=== PATIENT | female | born 1940 | race Caucasian/White ===

== ENCOUNTER 2018-11-11 05:34 | Emergency (ER) | payer MEDICARE ==
[~2018-11-11] VITALS: Ht 160 cm; Wt 63.5 kg
[~2018-11-11 05:34] MED LIST: ASPI-630 PO; DULO40CA2 PO; OMEP40CA5 PO; POLY17PO29 PO; VIT1TABL32 PO
[2018-11-11 05:44] VITALS: BP 143/66
[2018-11-11] MEDS ORDERED: KETOROLAC 15 MG/ML VIAL. IM ONE (06:15)
--- NOTE | 2018-11-11 06:17 | PHYS DOC ---
Past Medical History Past Medical History: High Cholesterol, Other Additional Past Medical Histor: Macular Degeneration (AXEL RAMSAY DO) Past Surgical History: Tonsillectomy, Other Additional Past Surgical Histo: Duodenal Ulcer (AXEL RAMSAY DO) Alcohol Use: None Drug Use: None (AXEL RAMSAY DO) Adult General Chief Complaint Chief Complaint: LOWER BACK PAIN OR INJURY HPI HPI 78-year-old female presents with report of sudden mid lumbar pain which started this morning. Denies known trauma. Denies fevers/chills. Patient does report some recent constipation. Denies dysuria or hematuria however has had some increased frequency. Denies known trauma. Denies rash. Denies history of back pain. (AXEL RAMSAY DO) Review of Systems Review of Systems Constitutional: Denies fever or chills [] Eyes: Denies change in visual acuity, redness, or eye pain [] HENT: Denies nasal congestion or sore throat [] Respiratory: Denies cough or shortness of breath [] Cardiovascular: Denies chest pain or palpitations GI: Denies abdominal pain, nausea, vomiting, or diarrhea; reports constipation : Denies dysuria or hematuria; reports increased frequency] Musculoskeletal: Reports back pain; denies joint pain [] Integument: Denies rash or skin lesions [] Neurologic: Denies headache, focal weakness or sensory changes [] Complete systems were reviewed and found to be within normal limits, except as documented in this note. (AXEL RAMSAY DO) Current Medications Current Medications Current Medications Medications (Trade) Dose Ordered Sig/Juliana Start Time Stop Time Status Last Admin Dose Admin Ketorolac Tromethamine (Toradol 15mg Vial) 10 mg 1X ONCE 11/11/18 06:15 11/11/18 06:16 DC 11/11/18 06:15 10 MG (FABIANA ALICEA MD) Allergies Allergies Allergies Coded Allergies Type Severity Reaction Last Updated Verified No Known Drug Allergies 05/04/16 No (FABIANA ALICEA MD) Physical Exam Physical Exam Constitutional: Well developed, well nourished, no acute distress, non-toxic appearance. [] HENT: Normocephalic, atraumatic, poor dentition Eyes: Conjunctiva normal, no discharge. [] Neck: Normal range of motion, no tenderness, supple Cardiovascular: Heart rate regular rhythm, no murmur [] Lungs & Thorax: Bilateral breath sounds clear to auscultation [] Abdomen: Soft, no tenderness Skin: Warm, dry, no erythema, no rash. [] Back: Midline lumbar tenderness on palpation, no CVA tenderness. [] Extremities: No tenderness, ROM intact, no edema. [] Neurologic: Alert and oriented X 3, normal motor function, normal sensory function, no focal deficits noted. [] Psychologic: Affect anxious, judgement normal, (AXEL RAMSAY DO) Current Patient Data Vital Signs Vital Signs Date Time Temp Pulse Resp B/P (MAP) Pulse Ox O2 Delivery O2 Flow Rate FiO2 11/11/18 05:44 98.1 79 18 143/66 (91) 95 Room Air 98.1 (FABIANA ALICEA MD) Lab Values Laboratory Tests Test 11/11/18 07:00 Urine Collection Type Unknown Urine Color [place] Urine Clarity Clear Urine pH 5.5 Urine Specific [place] >=1.030 Urine Protein Negative mg/dL (NEG-TRACE) Urine Glucose (UA) Negative mg/dL (NEG) Urine Ketones (Stick) Negative mg/dL (NEG) Urine Blood Small (NEG) Urine Nitrite Negative (NEG) Urine Bilirubin Small (NEG) Urine Urobilinogen Dipstick 1.0 mg/dL (0.2 mg/dL) Urine Leukocyte Esterase Small (NEG) Urine RBC 3-5 /HPF (0-2) Urine WBC 5-10 /HPF (0-4) Urine Squamous Epithelial Cells Few /LPF Urine Bacteria Moderate /HPF (0-FEW) Urine Mucus Marked /LPF (FABIANA ALICEA MD) EKG EKG [] (AXEL RAMSAY DO) Radiology/Procedures Radiology/Procedures [] (AXEL RAMSAY DO) Radiology/Procedures ER physician preliminary lumbar spine x-ray interpretation: Degenerative disc disease, without acute pathologic process or acute fracture noted. ER physician preliminary acute abdominal series: Stool within the large intestine, without any evidence of bowel obstruction (FABIANA ALICEA MD) Course & Med Decision Making Course & Med Decision Making Patient presents with sudden mid lumbar pain with concern for possible constipation versus urinary tract infection per patient. Tenderness noted on palpation of midline lumbar spine. Abdomen non-peritoneal. No flank pain appreciated. No rash appreciated. Denies known trauma. UA pending. X-ray of abdomen for constipation and lumbar spine pending. Sign out given to Dr. Alicea for further evaluation and final disposition. Discussed current findings and plan with patient and family, who acknowledge understanding and agreement. (AXEL RAMSAY DO) Course & Med Decision Making Patient care was assumed from Dr. Ramsay at shift change. Patient complained of some lumbar spine for the past few days. She denies any injury. She has not had any numbness, weakness, or incontinence. She does report a history of osteoporosis. She also reports having had chronic problems with constipation, which seems to have worsened over the past few months, she has not had a bowel movement in several days. She has not had any abdominal pain, nausea, or vomiting. The patient has been reexamined. Her abdomen is soft and nontender, there are no palpable masses, or abdominal bruits. There is no clinical evidence to suggest abdominal aortic aneurysm other acute pathology. Patient does have some mild tenderness to palpation reproducible in the posterior lumbar spine, without any step-off. X-rays have been reviewed. Urinalysis does show a possible early urinary tract infection. Discussed importance of close follow-up patient's PCP, with whom she says she has an appointment scheduled upcoming, and we discussed return precautions. (FABIANA ALICEA MD) Dragon Disclaimer Dragon Disclaimer This electronic medical record was generated, in whole or in part, using a voice recognition dictation system. (AXEL RAMSAY DO) Departure Departure Impression: Primary Impression: Low back pain Additional Impression: Urinary tract infection Disposition: HOME, SELF-CARE Condition: STABLE Referrals: EDDIE LARSON MD (PCP) Patient Instructions: Back Pain, Adult, Constipation, Adult, Urinary Tract Infection Additional Instructions: Tylenol 650 mg every 6 hours may help improve your back pain. Using an over-the- counter laxative, such as MiraLAX, once or twice daily may help improve constipation. Follow-up with your primary care provider as soon as possible. Scripts Sulfamethoxazole/Trimethoprim (BACTRIM DS TABLET) 1 Each Tablet 1 TAB PO BID for 5 Days, #10 TAB Prov: FABIANA ALICEA MD 11/11/18 Problem Qualifiers Primary Impression: Low back pain Chronicity: acute Back pain laterality: bilateral Sciatica presence: without sciatica Qualified Codes: M54.5 - Low back pain AXEL RAMSAY DO Nov 11, 2018 06:17 FABIANA ALICEA MD Nov 11, 2018 08:24
[2018-11-11 07:18] LABS: BILIRUBIN,URINE SMALL (NEG); CLARITY,URINE CLEAR; COLOR,URINE AMBER; NITRITE,URINE NEGATIVE (NEG); PH,URINE 5.5; PROTEIN,URINE NEGATIVE (NEG-TRACE)
[2018-11-11 07:28] LABS: SQUAMOUS EPITHELIAL CELL,UR FEW /LPF
[2018-11-11 07:29] LABS: BACTERIA,URINE MODERATE /HPF (0-FEW)
[2018-11-11] MEDS ORDERED: SULF1TAB24 PO (08:23)
--- NOTE | 2018-11-11 08:24 | RAD ---
Indication: Pain with no known injury TECHNIQUE: Multiple views of the lumbar spine and multiple views of the abdomen COMPARISON: None FINDINGS: Lumbar spine: There are 5 lumbar type vertebral bodies. No compression deformities. Minimal anterolisthesis of L4 over L5. Multilevel intervertebral disc space narrowing, worse at L2-L3. Mild bilateral SI joint osteoarthritis. Multilevel facet arthropathy. ABDOMEN: Heart is normal in size. Visualized lung bases are clear. No abnormally dilated bowel loops or air-fluid levels. No abnormal calcifications projecting over the kidneys to suggest apparent renal stones. Minimal levoscoliosis of the lumbar spine with apex at L2 vertebral body. Heart is normal in size. 1.1 cm radiopacity is seen in the left midlung zone. Otherwise, lungs are clear. IMPRESSION: 1. Multilevel degenerative disc disease, worse at L2-L3. Mild multilevel facet arthropathy. 2. Small radiopacity in the left midlung zone may represent a pulmonary nodule or calcified adenoma. Nonemergent CT of chest without IV contrast is recommended. Electronically signed by: Maicol Lambert DO (11/11/2018 8:20 AM) [id number]
== END 2018-11-11 08:22 | disposition home or self-care (01) ==
LOC: ER 05:34
DX: N39.0 Urinary tract infection, site not specified (principal); M51.36 Other intervertebral disc degeneration, lumbar region; E78.00 Pure hypercholesterolemia, unspecified; Z90.89 Acquired absence of other organs; K59.00 Constipation, unspecified
CPT/HCPCS: 72100; 74022; 81001; 96372; 99284; J1885

== ENCOUNTER → 2020-05-30 | Outpatient (CLI) | payer MEDICARE ==
[2018-11-19 07:00] VITALS: BP 126/67
[~2020-05-30] MED LIST changes: +HYDR-2759 PO; +OMEP40CA45 PO; -OMEP40CA5 PO; +SULF1TAB24 PO
--- NOTE | 2020-05-30 13:55 | KCIC ---
INDICATION: Osteoporosis screening. Postmenopausal evaluation COMPARISON: None. TECHNIQUE: Bone densitometry was performed through the distal radius. FINDINGS: Distal radius: BMD: 0.41 T-Score: -3 IMPRESSION: 1. Distal radius is within the osteoporotic range. Electronically signed by: David Saini MD (05/30/2020 1:52 PM) [id number]
--- NOTE | 2020-05-30 13:57 | KCIC ---
INDICATION: Osteoporosis screening. Postmenopausal screening COMPARISON: 04/08/2014 TECHNIQUE: Bone densitometry was performed through the left hip. FINDINGS: Proximal Femur: BMD: 0.68 T-Score: -2.1 Decreased by 6 percent from prior IMPRESSION: Proximal femur falls within the osteopenic range. Electronically signed by: David Saini MD (05/30/2020 1:54 PM) [id number]
--- NOTE | 2020-05-30 17:13 | KCIC ---
EXAM: CHEST PA LATERAL INDICATION: Reason: LUNG MASS ON PRIOR CXR / Spl. Instructions: / History: . TECHNIQUE: PA and lateral views COMPARISON: 11/11/2018 chest x-ray FINDINGS: The heart size is normal. The great vessels appear unremarkable. There is no hilar or mediastinal mass. Surgical clips at the hiatus are present.. Lungs show a 10 mm calcific density in the anterior left upper lobe. Otherwise they are clear. This is not significantly changed radiographically in the interval. There is no pleural effusion or pneumothorax. Vertebroplasty cement is present in the upper lumbar spine, new in the interval. IMPRESSION: Similar-appearing 10 mm dense nodule in the left upper lobe, better characterized on chest CT when clinically feasible. No other acute superimposed findings in the interval. Electronically signed by: Krissy Beckham MD (05/30/2020 5:10 PM) [id number]
== END | disposition home or self-care (01) ==
LOC: KCIC DEXA 10:55
PROVIDERS: ATTEND Family Medicine
DX: M81.0 Age-related osteoporosis without current pathological fracture (principal); M85.88 Other specified disorders of bone density and structure, other site; R91.1 Solitary pulmonary nodule; R91.8 Other nonspecific abnormal finding of lung field
CPT/HCPCS: 71046; 77080; 77081

== ENCOUNTER → 2020-07-28 | Outpatient (CLI) | payer MEDICARE ==
[2018-11-19 07:00] VITALS: BP 126/67
[~2020-07-28] MED LIST changes: +IOHEXOL 300 MG/ML 100ML VIAL. IV ONE
--- NOTE | 2020-07-28 13:24 | KCIC ---
Examination: CT chest with IV contrast HISTORY: History of lung nodule COMPARISON: None available Technique: Axial CT images of the chest were performed with IV contrast. Coronal and sagittal reformats are performed Exposure: One or more of the following individualized dose reduction techniques were utilized for this examination: 1. Automated exposure control 2. Adjustment of the mA and/or kV according to patient size 3. Use of iterative reconstruction technique FINDINGS: The central airways are patent. Coronary artery calcifications identified. No evidence for significant mediastinal lymphadenopathy. Bilateral lung emphysematous changes. Calcified density identified in the left lingula measuring 1.1 cm likely calcified granuloma. The visualized liver, spleen, adrenals grossly appears unremarkable. Gallstones identified within the gallbladder. Moderate degenerative changes thoracic spine. Severe compression change of L1 vertebral body with kyphoplasty changes identified at L1, L2 vertebral level. IMPRESSION: 1. Bilateral lung emphysematous changes. 2. 1.1 cm calcified granuloma in the left lingula. 3. Cholelithiasis. Electronically signed by: Jasen Henry MD (07/28/2020 1:21 PM) [id number]
== END ==
LOC: KCIC CT 12:21
PROVIDERS: ATTEND Family Medicine
DX: R91.8 Other nonspecific abnormal finding of lung field (principal); J43.9 Emphysema, unspecified; K80.20 Calculus of gallbladder without cholecystitis without obstruction; J84.10 Pulmonary fibrosis, unspecified; M47.814 Spondylosis without myelopathy or radiculopathy, thoracic region; Z87.891 Personal history of nicotine dependence
CPT/HCPCS: 71260; 82565; Q9967

== ENCOUNTER → 2021-02-22 | Outpatient (CLI) | payer MEDICARE ==
[2018-11-19 07:00] VITALS: BP 126/67
[~2021-02-22] MED LIST changes: -IOHEXOL 300 MG/ML 100ML VIAL. IV ONE
--- NOTE | 2021-02-22 16:06 | KCIC ---
EXAM: Bilateral lower extremity arterial Doppler sonogram. HISTORY: Nonpalpable pulses. Peripheral vascular disease. TECHNIQUE: Alcantar scale and color Doppler sonographic imaging of the lower extremity arteries with spec tral analysis was performed. COMPARISON: None. FINDINGS: There are abnormal monophasic waveforms within the bilateral deep femoral arteries, suggest ing hemodynamically significant proximal stenosis. There is also an abnormal monophasic waveform with in the right anterior tibial artery suggesting hemodynamically significant proximal stenosis. There i s moderate vascular plaque and there are elevated peak systolic velocities within the common femoral arteries, measuring 176 cm/s on the right and 180 cm/s on the left. The peak systolic velocities with in the remainder of the lower extremity arteries are within normal limits. IMPRESSION: 1. Doppler findings suggesting mild stenosis involving the common femoral arteries. 2. Abnormal monophasic waveforms involving the bilateral deep femoral and right anterior tibial arter ies, suggesting hemodynamically significant proximal stenosis. 3. No evidence of arterial occlusion. Electronically signed by: Audra Fisher MD (02/22/2021 4:04 PM) [id number]
== END ==
LOC: KCIC US 13:34
PROVIDERS: ATTEND Podiatrist
DX: I70.203 Unspecified atherosclerosis of native arteries of extremities, bilateral legs (principal); R09.89 Other specified symptoms and signs involving the circulatory and respiratory systems
CPT/HCPCS: 93925

== ENCOUNTER → 2021-07-27 | Outpatient (CLI) | payer MEDICARE ==
[2018-11-19 07:00] VITALS: BP 126/67
[~2021-07-27] MED LIST changes: -OMEP40CA45 PO; +OMEP40CA7 PO
--- NOTE | 2021-07-27 15:41 | KCIC ---
INDICATION: Screening for osteopenia/osteoporosis. Reason: POST MENOPAUSAL / Spl. Instructions: / H istory: COMPARISON: May 30, 2020 TECHNIQUE: Bone densitometry was performed through the lumbar spine and proximal femur. IMPRESSION: Lumbar Spine: BMD: 0.89 T-Score: -1.9 Range: Osteopenic. Decreased by 10 percent from prior. Proximal Femur: BMD: 0.68 T-Score: -2.1 Range: Osteopenic. Similar to most recent prior World Health Organization Criteria for Bone Density: T-Score: > -1.0: Normal Range < -1.0 to -2.5: Osteopenic Range < -2.5: Osteoporotic Range Electronically signed by: David Siani MD (07/27/2021 3:39 PM) [id number]
--- NOTE | 2021-07-27 17:08 | KCIC ---
MR LUMBAR SPINE WO [id number] Date: 07/27/2021 3:15 PM Indication: COMPRESSION FRACTURE OF SPINE. Previous treatment for compression fx yrs ago. Chronic lo wer back pain, getting worse. Comparison: CT chest 07/28/2020. MRI L-spine 11/16/2018. Technique: Multi-planar multi-weighted magnetic resonance imaging of the lumbar spine was performed w ithout intravenous contrast using the standard lumbar spine protocol. FINDINGS: T10 compression deformity with 30 percent loss of vertebral body height. Edema and fracture cleft khurram ng the inferior endplate. No significant osseous retropulsion. Chronic L1 compression deformity with 70 percent height loss and postsurgical changes of vertebral au gmentation. Osseous retropulsion with mild spinal canal stenosis. Chronic L2 compression deformity with no height loss and postsurgical changes of vertebral augmentati on. No osseous retropulsion. Chronic L3 compression deformity with 30 percent height loss. Mild retropulsion of the inferior endpl ate. Trace anterolisthesis at L4-5. Mild to moderate multilevel degenerative disc desiccation and disc hei ght loss. The conus terminates at a normal level. No abnormal signal is seen within the visualized distal spina l cord. No clumping of intrathecal nerve roots. No soft tissue abnormality in the visualized abdomen or pelvis. T12-L1: Disc bulge. Mild facet arthropathy. Osseous retropulsion of L1. Mild spinal canal stenosis. N o neural foraminal narrowing. L1-L2: Disc bulge. Mild facet arthropathy. Osseous retropulsion of L1. No spinal canal stenosis. Mild lateral recess narrowing. Moderate to severe bilateral neural foraminal narrowing. L2-L3: Disc bulge. Mild facet arthropathy. Mild spinal stenosis. Moderate bilateral neural foraminal narrowing. L3-L4: Disc bulge. Mild facet arthropathy. No spinal stenosis. Mild to moderate bilateral neural fora mel narrowing. L4-L5: Disc bulge. Mild facet arthropathy. Mild spinal stenosis. Mild right neural foraminal narrowin g. L5-S1: Disc bulge. Mild right and moderate facet arthropathy. No significant spinal stenosis or neura l foraminal narrowing. IMPRESSION: 1. Acute to subacute T10 compression deformity with 30 percent height loss and no significant osseous retropulsion. 2. Moderate lumbar spondylosis, detailed level by level above. Electronically signed by: Jaylen Wright MD (07/27/2021 5:06 PM) [id number]
== END ==
LOC: KCIC DEXA 14:40
PROVIDERS: ATTEND Nurse Practitioner Family
DX: S32.000A Wedge compression fracture of unspecified lumbar vertebra, initial encounter for closed fracture (principal); M85.89 Other specified disorders of bone density and structure, multiple sites; M43.8X6 Other specified deforming dorsopathies, lumbar region; M43.8X4 Other specified deforming dorsopathies, thoracic region; M47.816 Spondylosis without myelopathy or radiculopathy, lumbar region; M43.16 Spondylolisthesis, lumbar region; M51.27 Other intervertebral disc displacement, lumbosacral region; M48.07 Spinal stenosis, lumbosacral region; M48.8X7 Other specified spondylopathies, lumbosacral region
CPT/HCPCS: 72148; 77080